=== PATIENT | female | born 1995 | race Caucasian/White ===

== ENCOUNTER 2018-04-02 10:11 | Emergency (ER) | payer OTHER ==
--- NOTE | 2018-04-02 10:26 | ED ---
Throat Pain/Nasal Congestion - HPI Summary HPI Summary: 22 y/o female presents to the ED c/o constant L ear pain for 3 days. Pain is constant. Not aggravated or alleviated by anything. PMHx ear problems. Pt states she has been swimming recently. This is scribe Ed Janet documenting for attending Naif Cole MD - History of Current Complaint Chief Complaint: EDEarPain Time Seen by Provider: 04/02/18 10:20 Hx Obtained From: Patient Onset/Duration: Lasting Days, Still Present Associated Signs And Symptoms: Positive: Negative - Allergies/Home Medications Allergies/Adverse Reactions: Allergies Allergy/AdvReac Type Severity Reaction Status Date / Time No Known Allergies Allergy Verified 03/20/15 20:21 PMH/Surg Hx/FS Hx/Imm Hx Previously Healthy: No Cardiovascular History: Denies: Hx Congestive Heart Failure Respiratory History: Reports: Hx Asthma - Surgical History Surgery Procedure, Year, and Place: ear tubes. adenoidectomy Infectious Disease History: No Infectious Disease History: Denies: Traveled Outside the [place] in Last 30 Days - Family History Known Family History: Positive: Unknown - Social History Alcohol Use: Rare Substance Use Type: Reports: None Smoking Status (MU): Current Every Day Smoker Review of Systems Constitutional: Negative Eyes: Negative Positive: Ear Ache Cardiovascular: Negative Respiratory: Negative Gastrointestinal: Negative Genitourinary: Negative Musculoskeletal: Negative Skin: Negative Neurological: Negative Psychological: Normal All Other Systems Reviewed And Are Negative: Yes Physical Exam - Summary Physical Exam Summary: VITAL SIGNS: Reviewed. GENERAL: Patient is a well-developed and nourished FEMALE who is lying comfortable in the stretcher. Patient is not in any acute respiratory distress. HEAD AND FACE: No signs of trauma. No ecchymosis, hematomas or skull depressions. No sinus tenderness. EYES: PERRLA, EOMI x 2, No injected conjunctiva, no nystagmus. EARS: Hearing grossly intact. L ear canal swollen with discharge, TTP. MOUTH: Oropharynx within normal limits. NECK: Supple, trachea is midline, no adenopathy, no JVD, no carotid bruit, no c- spine tenderness, neck with full ROM. CHEST: Symmetric, no tenderness at palpation LUNGS: Clear to auscultation bilaterally. No wheezing or crackles. CVS: Regular rate and rhythm, S1 and S2 present, no murmurs or gallops appreciated. ABDOMEN: Soft, non-tender. No signs of distention. No rebound no guarding, and no masses palpated. Bowel sounds are normal. EXTREMITIES: FROM in all major joints, no edema, no cyanosis or clubbing. NEURO: Alert and oriented x 3. No acute neurological deficits. Speech is normal and follows commands. SKIN: Dry and warm Triage Information Reviewed: Yes Vital Signs On Initial Exam: Initial Vitals Temp Pulse Resp BP Pulse Ox 98 F 80 16 134/80 97 04/02/18 10:14 04/02/18 10:14 04/02/18 10:14 04/02/18 10:14 04/02/18 10:14 Vital Signs Reviewed: Yes Diagnostics - Vital Signs Vital Signs Temp Pulse Resp BP Pulse Ox 04/02/18 10:14 98 F 80 16 134/80 97 - Laboratory Lab Statement: Any lab studies that have been ordered have been reviewed, and results considered in the medical decision making process. EENT Course/Dx - Course Assessment/Plan: Patient is a 24-year-old female who presents to the emergency department with chief complaint of left ear pain. Patient reports that the pain is for the last couple days, she has been swimming. Physical exam shows an otitis externa. Patient was given a prescription for ciprofloxacin otic and she can take ibuprofen or Tylenol for pain. Patient will be discharged home with follow-up with primary care physician. Patient is hemodynamically stable alert and oriented 3. QUESTIONS OR CONCERNS WERE ADDRESSED AND SHE HAS NO FURTHER QUESTIONS. - Diagnoses Provider Diagnoses: Otitis externa Discharge - Sign-Out/Discharge Documenting (check all that apply): Patient Departure - Discharge Plan Condition: Stable Disposition: HOME Prescriptions: Ciproflox/Dexameth OTIC.SUSP* [Ciprodex OTIC.SUSP*] 1 drop .SEE ORDER Q4H #1 btl Patient Education Materials: Otitis Externa (ED) Referrals: Deshawn Bob MD [Primary Care Provider] - 3 Days (PLEASE F/U IN 3-5 DAYS) Additional Instructions: RETURN TO THE ED FOR CHANGING/WORSENING SYMPTOMS
[2018-04-02 10:41] VITALS: BP 124/66
== END 2018-04-02 10:38 | disposition home or self-care (01) ==
LOC: ED 10:11
DX: H60.92 Unspecified otitis externa, left ear (principal); F17.200 Nicotine dependence, unspecified, uncomplicated
CPT/HCPCS: 99281